=== PATIENT | female | born 1995 | race African-American/Black ===

== ENCOUNTER 2022-10-02 00:01 | Emergency (ER) | payer MEDICAID, SELFPAY ==
[2022-10-02 00:04] VITALS: BP 180/117; PULSE 86; RESP 15; TEMP 37.1; O2SAT 98; BMI 40.7
--- NOTE | 2022-10-02 00:32 | EDS_ITS ---
HPI History of Present Illness Chief Complaint: Other, Pain/Inj Narrative Narrative: This feelsPatient has had fevers, chills, vomiting, diarrhea without blood for the past 2 days. Everything seemed to subside this morning and she started getting myalgias all over including her rib cage, anterior and posterior, hurts to breathe, hurts to move, achy. She has been tolerating fluids otherwise. She missed work the last 2 days and needs a note as well. She states when she had COVID she had aches like this all over as well, and it also started after she started feeling better with regards to the other symptoms. No known sick contacts lately. Can keep her blood pressure pills down the last day or 2 but then retook them tonight when she was feeling better, so pressure still. She has missed her medications in the past on accident and had high blood pressure without getting these aches and pains that she does not think it is from her blood pressure. No recent antibiotic treatment. Healthy otherwise. [facility] Medical History Hypertension Home Medications lisinopril 20 mg-hydrochlorothiazide 12.5 mg tablet 1 tab PO DAILY 10/02/22 [History Last Taken Unknown] ondansetron 4 mg disintegrating tablet 8 mg PO Q8H PRN PRN Nausea #12 tabs 10/02/22 [Rx Last Taken Unknown] Allergy/AdvReac Type Severity Reaction Status Date / Time No Known Allergies Allergy Verified 04/22/13 09:59 Surgical History (Updated 10/02/22 @ 00:10 by Agustina Camarillo) History of appendectomy Hx of tonsillectomy Social History Smoking Status: Current some day smoker tobacco type: cigarettes ROS ROS ED Constitutional Constitutional ED: Reports body ache(s), chills, fever(s) and malaise Eyes Eyes: Denies change in vision or diplopia ENT ENT ED: Denies rhinorrhea or sore throat Cardiovascular Cardiovascular: Denies chest pain or palpitations Respiratory/Chest Respiratory/Chest: Denies cough or dyspnea Gastrointestinal Gastrointestinal: Reports diarrhea, nausea and vomiting; Denies abdominal pain Genitourinary Genitourinary ED: Denies dysuria or hematuria Musculoskeletal Musculoskeletal: Denies back pain or neck pain Integumentary Denies abscess or rash Neurologic Neurologic: Denies headache(s), paresthesias or weakness Psychiatric Psychiatric: Denies anxiety or suicidal thoughts EXAM Physical Exam Const Vital Signs: 10/02/22 00:04 10/02/22 00:10 Temperature 98.7 F Temperature Source Oral Pulse Rate 86 Respiratory Rate 15 Respiratory Effort Normal Non-Labored Respiratory Pattern Normal Blood Pressure 180/117 H Blood Pressure Mean 138 Pulse Ox 98 Oxygen Delivery Method Room Air Positive well nourished and well developed Constitutional Narrative: Well-appearing, conversive in full sentences General Appearance ED: well developed and NAD HEENT Reports moist mucous membranes normocephalic and atraumatic Eyes PERRL and EOMs intact bilaterally Neck full ROM and supple Chest Wall inspection of chest normal Chest Narrative: Diffuse tenderness throughout entire rib cage no subcutaneous emphysema. No splinting with deep inspiration. Resp normal respiratory effort and clear to auscultation bilaterally Cardio regular rate, regular rhythm and no murmurs Rate: Negative for tachycardic GI non-tender and non-distended Auscultation: normoactive bowel sounds Palpation: soft Back/Spine no CVA tenderness General Back: other FROM Extremity normal to inspection General Extremety ED: Negative for edema, pulses abnormal or tenderness General Extremity: Negative for edema or pulses abnormal Neuro oriented x3, CN's II-XII intact bilaterally and no sensory deficits noted Sensorium / Orientation: awake and alert Motor Exam: strength 5/5 throughout Skin no rashes or lesions noted and no wounds MDM MDM MDM Narrative Medical decision making narrative: PERC score 0. I do not think she has pulmonary embolus. I think this is likely all viral syndrome. She is hydrated. Vital signs are normal. She is given an injection of Toradol, work note, discharged home with supportive care instructions to continue checking her blood pressure and take her medication as prescribed. Discharge Plan Triage Chief Complaint: Other, Pain/Inj ED Provider: Brando Astorga Dx/Rx/DC Orders Clinical Impression: Viral gastroenteritis Instructions: Viral Gastroenteritis Prescriptions: New ondansetron [ondansetron] 4 mg tablet,disintegrating 8 mg PO Q8H PRN PRN (Reason: Nausea) Qty: 12 0RF No Action lisinopril-hydrochlorothiazide 20-12.5 mg tablet 1 tab PO DAILY Stand Alone Forms: ED Work / School Excuse Referrals: Doctor,Your [Non-Staff] - 1 Week if not improving Disposition Disposition: Home, Self Care
[2022-10-02] MEDS: Ketorolac 60 MG/2 ML Vial IM (00:43)
== END 2022-10-02 01:20 | disposition home or self-care (01) ==
LOC: ED 00:42
PROVIDERS: Emergency Provider Emergency Medicine; Visit Provider Emergency Medicine
DX: A08.4 Viral intestinal infection, unspecified (principal); I10 Essential (primary) hypertension; F17.210 Nicotine dependence, cigarettes, uncomplicated; Z79.899 Other long term (current) drug therapy; Z90.49 Acquired absence of other specified parts of digestive tract
CPT/HCPCS: 96372; 99282

== ENCOUNTER 2023-12-23 18:23 | Emergency (ER) | payer MEDICAID, SELFPAY ==
[2023-12-23] VITALS (8 sets, daily range): BP systolic 143–201; BP diastolic 90–140; PULSE 79–109; RESP 15–19; TEMP 36.4–36.9; O2SAT 95–99; BMI 41.3
--- NOTE | 2023-12-23 19:14 | EKG12_ITS ---
Test Reason : DIZZY Blood Pressure : / mmHG Vent. Rate : 086 BPM Atrial Rate : 086 BPM P-R Int : 160 ms QRS Dur : 080 ms QT Int : 384 ms P-R-T Axes : 038 017 010 degrees QTc Int : 459 ms Normal sinus rhythm Minimal voltage criteria for LVH, may be normal variant ( R in aVL ) Borderline ECG Confirmed by Earl Birch ([id number]), market editor CHELSEA PRICE ([id number]) on 12/24/2023 9:05:32 AM Referred By: Confirmed By:Earl Birch
[2023-12-23 19:36] LABS: Absolute Lymphocyte Count 3.65 X10^3/uL (0.83-4.51); Absolute Neutrophil Count 4.3 X10^3/uL (2.0-7.7); Basophil# 0.04 X10^3/uL; Basophil% 0.4 % (0-1); Eosinophil# 0.18 X10^3/uL; Hematocrit 41.3 % (37-47); Hemoglobin 13.3 g/dL (12.0-15.0); Lymphocyte # 3.65 X10^3/ul (0.83-4.51); Lymphocyte % 41.1 % (19-41); Mean Corp Hgb Conc 32.2 g/dL (32-36); Mean Corpuscular Hgb 29.9 pg (27.0-32.0); Mean Corpuscular Volume 92.8 fL (81-99); Mean Platelet Vol. 10.4 fl (6.2-12.0); Monocyte# 0.67 X10^3/uL; Monocyte% 7.5 % (0-10); NRBC Flagged by Analyzer 0 % (0-5); Neutrophil # 4.33 X10^3/uL (2.7-7.7); Neutrophil % 48.8 % (47-70); Platelet Count 332 K/mm3 (150-450); RBC Distribution Width CV 12.1 % (11.6-14.6); RBC Distribution Width SD 41.3 fl (35.1-43.9); Red Blood Count 4.45 M/mm3 (4.2-5.4); White Blood Count 8.9 K/mm3 (4.4-11.0)
--- NOTE | 2023-12-23 19:40 | RAD_ITS ---
STUDY: X-RAY CHEST REASON FOR EXAM: Female, 28 years old. Chest pain TECHNIQUE: Single AP portable view of the chest. COMPARISON: None. FINDINGS: The lungs are clear and expanded. There is no demonstrated pleural abnormality. Normal size heart. Normal mediastinum and yojana. Normal visualized pulmonary arteries. Normal visualized aortic arch and descending thoracic aorta. Normal visualized thoracic spine. Normal visualized ribs, clavicles, and shoulders. There is no demonstrated abnormality of the visualized soft tissue structures of the upper abdomen. RAD/Chest 1 View (Portable) IMPRESSION: Normal x-ray examination of the chest. Electronically Signed: Brando Baltazar MD at 20:56 EDT ,
--- NOTE | 2023-12-23 19:54 | CT_ITS ---
STUDY: CT BRAIN WITHOUT CONTRAST REASON FOR EXAM: Female, 28 years old. [place] RADIATION DOSAGE (If Supplied By Facility): CTDIvol = ( 44.99 ) mGy, DLP = ( 762.36 ) mGycm TECHNIQUE: Transaxial CT imaging of the brain was performed without administration of intravenous contrast material. Individualized dose optimization techniques were used for this CT. COMPARISON: No relevant priors. FINDINGS: Normal soft tissue structures. Normal calvarium. Normal size ventricles and extra-axial spaces for the patient''s age. Normal white matter tracts of the cerebral hemispheres. Normal basal ganglia and thalami. Normal brainstem. Normal cerebellum. There is no intracranial hemorrhage. There are no findings of an acute ischemic infarction. Normal visualized paranasal sinuses. CT/Brain/Head without Contrast IMPRESSION: Normal unenhanced CT scan of the brain. Electronically Signed: Brando Baltazar MD at 21:02 EDT ,
--- NOTE | 2023-12-23 19:55 | EDS_ITS ---
HPI History of Present Illness Chief Complaint: Chest Pain Narrative Narrative: 28-year-old female with history of hypertension presenting with chest pain, lightheadedness, intermittent headaches. She states the chest pain comes and goes sporadically. It last for short duration and it feels like aching in the left side of the chest. She states that she has been off of her blood pressure medication for at least 5 months. The last time she had it refilled was distantly and it was not by her primary care physician. She states her primary care physician moved to [place]. Patient denies shortness of breath, fever, chills, cough. Patient does also state that she has headaches intermittently from her blood pressure being high. She describes it as severe pressure. She states she had this yesterday associated with lightheadedness and states she her head hurt so bad that she was screaming. She states did not take anything for the headache and tried to go to sleep. She woke up and her headache pain was improved. Patient states that she used to be on government insurance but makes too much money now so she does not have this anymore and she does have enough money to pay for her medications but she states the doctors bills at up without insurance. [facility] Medical History Hypertension Home Medications ?Medication ?Instructions ?Recorded ?Last Taken ?Type lisinopril 20 1 tab PO DAILY 10/02/22 Unknown History mg-hydrochlorothiazide 12.5 mg tablet lisinopril 20 1 tab PO DAILY #60 tabs 12/23/23 Unknown Rx mg-hydrochlorothiazide 12.5 mg tablet Allergy/AdvReac Type Severity Reaction Status Date / Time No Known Allergies Allergy Verified 12/23/23 18:56 Surgical History Hx of tonsillectomy History of appendectomy Social History Smoking Status: Current some day smoker tobacco type: cigarettes ROS ROS ED Constitutional Constitutional ED: Denies chills, fever(s) or sweats Eyes Eyes: Denies blurry vision or change in vision ENT ENT ED: Denies ear pain or sore throat Cardiovascular Cardiovascular: Reports chest pain; Denies palpitations or racing heartbeat Respiratory/Chest Respiratory/Chest: Denies cough, dyspnea or sputum Gastrointestinal Gastrointestinal: Denies abdominal pain, constipation, diarrhea, nausea or vomiting Genitourinary Genitourinary ED: Denies dysuria, hematuria or urinary frequency Musculoskeletal Musculoskeletal: Denies arthralgias, myalgias or neck pain Integumentary Denies abscess, Abrasions or rash Neurologic Neurologic: Reports headache(s); Denies paresthesias or weakness Psychiatric Psychiatric: Denies anxiety, depression, suicidal ideation or suicidal thoughts Endocrine Endocrinology: Denies polydipsia or polyuria EXAM Physical Exam Const Vital Signs: 12/23/23 18:24 12/23/23 18:47 12/23/23 18:54 Temperature 97.6 F L 97.9 F Temperature Source Temporal Temporal Pulse Rate 100 89 Pulse Rate [Lying] Pulse Rate [Sitting (for 1 minute prior to obtaining)] Pulse Rate [Standing (for 1 minute prior to obtaining)] Respiratory Rate 18 16 Respiratory Effort Normal Blood Pressure 201/140 H 172/108 H Blood Pressure [Lying] Blood Pressure [Sitting (for 1 minute prior to obtaining)] Blood Pressure [Standing (for 1 minute prior to obtaining)] Blood Pressure Mean 160 129 Blood Pressure Mean [Lying] Blood Pressure Mean [Sitting (for 1 minute prior to obtaining)] Blood Pressure Mean [Standing (for 1 minute prior to obtaining)] Pulse Ox 99 97 Oxygen Delivery Method Room Air Room Air 12/23/23 19:14 12/23/23 19:24 12/23/23 19:30 Temperature Temperature Source Pulse Rate 86 81 Pulse Rate [Lying] Pulse Rate [Sitting (for 1 minute prior to obtaining)] Pulse Rate [Standing (for 1 minute prior to obtaining)] Respiratory Rate 19 H 17 Respiratory Effort Blood Pressure 174/124 H Blood Pressure [Lying] Blood Pressure [Sitting (for 1 minute prior to obtaining)] Blood Pressure [Standing (for 1 minute prior to obtaining)] Blood Pressure Mean 139 Blood Pressure Mean [Lying] Blood Pressure Mean [Sitting (for 1 minute prior to obtaining)] Blood Pressure Mean [Standing (for 1 minute prior to obtaining)] Pulse Ox Oxygen Delivery Method Room Air 12/23/23 19:41 12/23/23 20:24 12/23/23 20:50 Temperature 98.5 F Temperature Source Oral Pulse Rate 79 81 Pulse Rate [Lying] 109 H Pulse Rate [Sitting (for 1 minute prior to obtaining)] 108 H Pulse Rate [Standing (for 1 minute prior to obtaining)] 100 Respiratory Rate 19 H 15 Respiratory Effort Blood Pressure 174/124 H 177/99 H Blood Pressure [Lying] 182/125 H Blood Pressure [Sitting (for 1 minute prior to obtaining)] 190/106 H Blood Pressure [Standing (for 1 minute prior to obtaining)] 143/90 H Blood Pressure Mean 140 125 Blood Pressure Mean [Lying] 144 Blood Pressure Mean [Sitting (for 1 minute prior to obtaining)] 134 Blood Pressure Mean [Standing (for 1 minute prior to obtaining)] 107 Pulse Ox 98 95 Oxygen Delivery Method Room Air Room Air 12/23/23 21:58 Temperature 97.8 F Temperature Source Pulse Rate 81 Pulse Rate [Lying] Pulse Rate [Sitting (for 1 minute prior to obtaining)] Pulse Rate [Standing (for 1 minute prior to obtaining)] Respiratory Rate 15 Respiratory Effort Blood Pressure 177/99 H Blood Pressure [Lying] Blood Pressure [Sitting (for 1 minute prior to obtaining)] Blood Pressure [Standing (for 1 minute prior to obtaining)] Blood Pressure Mean 125 Blood Pressure Mean [Lying] Blood Pressure Mean [Sitting (for 1 minute prior to obtaining)] Blood Pressure Mean [Standing (for 1 minute prior to obtaining)] Pulse Ox 95 Oxygen Delivery Method Positive well nourished General Appearance ED: NAD HEENT Reports moist mucous membranes normocephalic and atraumatic Eyes PERRL and EOMs intact bilaterally Neck no lymphadenopathy Chest Wall inspection of chest normal Resp normal respiratory effort and clear to auscultation bilaterally Auscultation: Negative for rales, rhonchi or wheezes Cardio regular rate and regular rhythm GI normal to inspection, nondistended, normoactive bowel sounds Extremity normal to inspection Neuro oriented x3 and CN's II-XII intact bilaterally Neuro Narrative: No focal neurologic deficits or lateralizing signs or symptoms Sensorium / Orientation: awake and alert Psych mental status grossly normal Mood & Affect: Negative for anxious or tearful Skin no rashes or lesions noted MDM MDM MDM Narrative Medical decision making narrative: Patient presenting with chest pain, headaches. These have been intermittent over the last several months and she has not been taking her medications. She states he supposed to be on lisinopril 20 she believes. Differential includes subarachnoid hemorrhage, migraine, hypertensive emergency, ACS, dysrhythmia, dehydration, anemia, endorgan damage, electrolyte abnormalities. CBC will be obtained to assess white blood cell count, hemoglobin, platelets. BMP to assess renal function, electrolytes, glucose. High-sensitivity troponin and EKG to assess for ischemia/dysrhythmia. Chest x-ray to rule out pneumonia. CT brain will be obtained. Patient is given 10 mg of hydralazine IV. Reevaluation patient's blood pressure 177/99. White blood cell count 8.9. Hemoglobin 13.3. Platelets normal 332. Renal function electrolytes within normal limits. High- sensitivity troponin 43. BNP 9.1. EKG sinus rhythm at 86 bpm without sign of ischemic change but is evidence of LVH. CT brain negative for acute findings. Did speak with the patient at length at the next density of medical compliance with her blood pressure medicines. She was post to be on lisinopril HCTZ combo at 20 mg - 12.5 mg but I refilled this and give her 2-month supply. She states she is going to follow-up with Ortho outpatient is where she has been before prior to her primary care provider retiring. I also gave her information for [facility]. Return precautions were discussed. Impression: 1. Hypertension 2. Headache 3. Chest pain Lab Data Labs: Laboratory Results - last 24 hr 12/23/23 19:25 WBC 8.9 RBC 4.45 Hgb 13.3 Hct 41.3 MCV 92.8 MCH 29.9 MCHC 32.2 RDW Std Deviation 41.3 RDW Coeff of Britany 12.1 Plt Count 332 MPV 10.4 Immature Gran % (Auto) 0.200 Neut % (Auto) 48.8 Lymph % (Auto) 41.1 H Brule % (Auto) 7.5 Eos % (Auto) 2.0 Baso % (Auto) 0.4 Absolute Neuts (auto) 4.3 Absolute Lymphs (auto) 3.65 Nucleated RBC % 0 Sodium 140 Potassium 3.4 L Chloride 106 Carbon Dioxide 30.0 Anion Gap 4 L BUN 13 Creatinine 0.96 Estim Creat Clear Calc 91.35 Est GFR (MDRD) Af Amer 89 Est GFR (MDRD) Non-Af 74 BUN/Creatinine Ratio 13.5 Glucose 83 Calcium 8.9 Troponin I High Sens 43 B-Natriuretic Peptide 9.1 Radiography Diagnostic Testing: Clinical Impression(s) from Imaging Studies Chest X-Ray 12/23/23 19:40 IMPRESSION: Normal x-ray examination of the chest. Electronically Signed: Brando Baltazar MD at 20:56 EDT , Brain CT 12/23/23 19:54 IMPRESSION: Normal unenhanced CT scan of the brain. Electronically Signed: Brando Baltazar MD at 21:02 EDT , Discharge Plan Triage Chief Complaint: Chest Pain ED Provider: Yakov Newman Dx/Rx/DC Orders Instructions: Self-Care for Headaches, ED Chest Pain, Uncertain Cause, ED Hypertension New Begin Treatment Prescriptions: New lisinopril-hydrochlorothiazide 20-12.5 mg tablet 1 tab PO DAILY Qty: 60 0RF No Action lisinopril-hydrochlorothiazide 20-12.5 mg tablet 1 tab PO DAILY Patient Comments: pt states she has not had med for 6 months Primary Care Provider: Care Physician,No Primary Referrals: [facility] [Provider Group] - 3-5 Days Care Physician,No Primary [Primary Care Provider] - Print Language: Slovenian Disposition Disposition: Home, Self Care Discharge Date/Time: 12/23/23 21:59
[2023-12-23 20:01] LABS: BNP,B-Type NATRIURETIC PEPTIDE 9.1 pg/mL (0-100)
[2023-12-23 20:04] LABS: Anion Gap 4 (5-15); BUN 13 mg/dL (7-18); BUN/Creat Ratio 13.5 RATIO (10-20); Calcium,Total 8.9 mg/dL (8.5-10.1); Chloride 106 mmol/L (98-107); Creatinine, Serum 0.96 mg/dL (0.55-1.02); EST Glomerular Filtration Rate 74 mL/min (>60); Est Glom Filt Rate - Afr Amer 89 mL/min (>60); Estimated Creatinine Clearance 91.35 ml/min; Glucose 83 mg/dL (74-106); Potassium 3.4 mmol/L (3.5-5.1); Sodium Level 140 mmol/L (136-145); Troponin-I HS 43 pg/mL (3.0-54.0)
[2023-12-23] MEDS: hydrALAZINE 20 MG/ML Vial 10 MG IV (20:25)
[2023-12-23] MEDS: hydroCHLOROthiazide 12.5mg 12.5 MG PO (21:48)
[2023-12-23] MEDS: Lisinopril 20 MG Tablet PO (21:48)
== END 2023-12-23 21:59 | disposition home or self-care (01) ==
PROVIDERS: Emergency Provider Student in an Organized Health Care Education/Training Program; Visit Provider Student in an Organized Health Care Education/Training Program
DX: R07.9 Chest pain, unspecified (principal); F17.210 Nicotine dependence, cigarettes, uncomplicated; I10 Essential (primary) hypertension; R51.9 Headache, unspecified; Z90.49 Acquired absence of other specified parts of digestive tract
CPT/HCPCS: 70450; 71045; 80048; 83880; 84484; 85025; 93005; 96374; 99285; A4216